=== PATIENT | female | born 1990 | race African-American/Black ===

== ENCOUNTER 2018-03-30 22:59 | Emergency (ER) | payer SELFPAY ==
[~2018-03-30] VITALS: Ht 160 cm; Wt 84.8 kg
[~2018-03-30 22:59] MED LIST: IBUP-1542 PO
[2018-03-30 23:01] VITALS: BP 131/63; PULSE 85; RESP 18; Ht 160 cm; Wt 84.8 kg
== END 2018-03-31 00:09 | disposition left against medical advice (07) ==
LOC: FTE 22:59
DX: Z53.21 Procedure and treatment not carried out due to patient leaving prior to being seen by health care provider (principal)

== ENCOUNTER 2018-03-31 15:03 | Emergency (ER) | payer SELFPAY | END 2018-03-31 16:36 | disposition left against medical advice (07) | LOC: E/R 15:03 | DX: Z53.21 Procedure and treatment not carried out due to patient leaving prior to being seen by health care provider (principal) ==

== ENCOUNTER 2018-03-31 16:46 | Emergency (ER) | payer SELFPAY ==
[~2018-03-31] VITALS: Ht 165.1 cm; Wt 84.4 kg
[2018-03-31 16:50] VITALS: BP 126/72; PULSE 90; RESP 18; Ht 165.1 cm; Wt 84.4 kg
== END 2018-03-31 19:05 | disposition left against medical advice (07) ==
LOC: FTE 16:46
DX: Z53.21 Procedure and treatment not carried out due to patient leaving prior to being seen by health care provider (principal)